=== PATIENT | female | born 1965 | race African-American/Black ===

== ENCOUNTER 2016-11-29 21:33 | Emergency (ER) | payer BC ==
[~2016-11-29] VITALS: Ht 147.3 cm; Wt 59.0 kg
--- NOTE | 2016-11-29 22:25 | Emergency Room Report ---
History of Present Illness General Chief Complaint: Back Pain-No Injury Source: Patient Present Illness HPI Patient present with complaints of low back pain She also complains of left scapular pain Reports that she had low back fusion in 2005 she had been doing well However does get intermittent pain Patient had MRI done of the C-spine and L-spine approximately one month ago Denies any dysuria frequency denies any chest pain or shortness of breath Denies any upper extremity neuropathy Pain is 6/10 reports that she has not had much relief with her prescriptions at home Allergies: Coded Allergies: No Known Allergies (Unverified , 11/29/16) Patient History Past Medical History: see triage record Pertinent Family History: none Last Menstrual Period: 06/26 Now: No : 7 Para: 2 Reviewed Nursing Documentation: PMH: Agreed, PSxH: Agreed Nursing Documentation-PMH Hx Cardiac Problems: No - Back surgery 2005, L3 L4 spinal fusion with titanium disk Review of Systems All Other Systems: negative except mentioned in HPI Physical Exam Vital Signs Date Time Temp Pulse Resp B/P Pulse Ox O2 Delivery O2 Flow Rate FiO2 11/29/16 21:51 97.9 93 19 139/84 95 Room Air Sp02 EP Interpretation: reviewed, normal General Appearance: well appearing, no apparent distress Head: normocephalic, atraumatic Eyes: bilateral eye EOMI, bilateral eye PERRL ENT: hearing grossly normal, normal pharynx, TMs + canals normal, uvula midline Neck: full range of motion, supple, no meningismus, no bony tend Respiratory: lungs clear, normal breath sounds, no rhonchi, no respiratory distress, no retraction, no accessory muscle use Cardiovascular #1: normal peripheral pulses, regular rate, rhythm, no edema, no gallop, no JVD, no murmur Gastrointestinal: normal bowel sounds, non tender, soft, no mass, no organomegaly, non-distended, no guarding, no hernia, no pulsatile mass, no rebound Genitourinary: no CVA tenderness Musculoskeletal: other - Left rhomboid discomfort on the mid region on palpation, also L3-L4 paraspinal mild discomfort on palpation no midline step- offs however the patient has had fusion Neurologic: oriented x3, responsive, food inspector III-XII nml as tested, sensory intact Psychiatric: mood/affect normal Skin: normal color, no rash, warm/dry, palpation normal Lymphatic: normal inspection, no adenopathy Medical Decision Making Diagnostic Impression: Primary Impression: Back pain ER Course Multiple differentials are considered patient has had fairly extensive workup including MRI recently Patient was given pain medication here has done better Given the recent extensive workup we did not repeat testing her Patient was also asking regarding pain medication Patient was referred to her cures which reveals multiple medication by different provider And was encouraged to followup given the safe pain medicine prescribing Last Vital Signs Date Time Temp Pulse Resp B/P Pulse Ox O2 Delivery O2 Flow Rate FiO2 11/29/16 21:51 97.9 93 19 139/84 95 Room Air Status: improved Disposition: HOME, SELF-CARE Condition: Improved Additional Instructions: Patient is provided with the discharge instructions notified to follow up with primary doctor in the next 2-3 days otherwise return to the er with any worsening symptoms. Please note that this report is being documented using [employer] technology. This can lead to erroneous entry secondary to incorrect interpretation by the dictating instrument. MELY HARRISON D.O. Nov 29, 2016 22:25
[2016-11-29] MEDS ORDERED: Morphine Sulfate 10mg/ml Inj IM ONE (22:30)
[2016-11-29 23:01] VITALS: BP 128/85
[2016-11-29 23:02] VITALS: BP 139/84
== END 2016-11-29 23:03 | disposition home or self-care (01) ==
LOC: EMR 21:57
DX: M54.9 Dorsalgia, unspecified (principal)
CPT/HCPCS: 96372; 99284; J2270